=== PATIENT | male | born 1960 | race African-American/Black ===

== ENCOUNTER 2017-08-30 15:36 | Emergency (ER) | payer SELFPAY ==
[~2017-08-30] VITALS: Ht 177.8 cm; Wt 80.0 kg
[2017-08-30 15:40] VITALS: BP 176/101; PULSE 90; RESP 16; TEMP 98.8; O2SAT 99
--- NOTE | 2017-08-30 20:39 | PD ---
HPI Chief Complaint: Pain: Acute or Chronic Time Seen by Provider: 20:31 Travel History International Travel<30 days: No Contact w/Intl Traveler<30days: No Traveled to known affect area: No History of Present Illness HPI 56-year-old male complains of low back pain, left hip pain and left knee pain. Patient states that he fell 2 weeks ago. Patient states that he twisted his low back area, left hip and left knee. Patient denies any other injury. Patient states the pain is sharp pain localized to low back area, left hip and left knee. Patient complained of swelling of left knee. Patient denies any fever chills. Patient denies any previous injury. Patient denies being on any routine medication. On a scale of 1-10 the pain is an 8. PFSH Past Medical History ADHD: Yes Bipolar Disorder: Yes Cerebrovascular Accident: Yes (SEVERAL YEARS AGO) Diminished Hearing: No Hypertension: Yes Tetanus Vaccination: Unknown Social History Alcohol Use: Yes (4 pk per day) Tobacco Use: Yes (one pk per day) Substance Use: No Allergies-Medications (Allergen,Severity, Reaction): Coded Allergies: No Known Allergies (Verified Adverse Reaction, Unknown, 08/30/17) Reported Meds & Prescriptions Reported Meds & Active Scripts Active No Active Prescriptions or Reported Medications Review of Systems General / Constitutional: No: Fever Eyes: No: Visual changes HENT: No: Headaches Cardiovascular: No: Chest Pain or Discomfort Respiratory: No: Shortness of Breath Gastrointestinal: No: Abdominal Pain Genitourinary: No: Dysuria Musculoskeletal: Positive: Pain Skin: No Rash Neurologic: No: Weakness Psychiatric: No: Depression Endocrine: No: Polydipsia Hematologic/Lymphatic: No: Easy Bruising Physical Exam Narrative GENERAL: Well-nourished, well-developed patient. SKIN: Focused skin assessment warm/dry. HEAD: Normocephalic. EYES: No scleral icterus. No injection or drainage. NECK: Supple, trachea midline. No JVD or lymphadenopathy. CARDIOVASCULAR: Regular rate and rhythm without murmurs, gallops, or rubs. RESPIRATORY: Breath sounds equal bilaterally. No accessory muscle use. GASTROINTESTINAL: Abdomen soft, non-tender, nondistended. MUSCULOSKELETAL: Patient has mild tenderness to palpation posterior lateral aspect the left hip joint. Full range of motion left hip joint. Patient has moderate effusion of the left knee. Moderate tenderness diffuse over the left knee. Full range of motion the knee. Knee joint stable. BACK: Patient has moderate tenderness on palpation to the mid to low lumbar area , without obvious deformity. No CVA tenderness. Negative straight leg raising. Neurologic exam normal. Data Data Last Documented VS Vital Signs Date Time Temp Pulse Resp B/P (MAP) Pulse Ox O2 Delivery O2 Flow Rate FiO2 08/30/17 15:40 98.8 90 16 176/101 (126) 99 Orders Orders Spine, Lumbar - Ltd (Ap & Lat) (08/30/17 20:34) Hip, Uni(Ap&Lat) W Ap Pelvis (08/30/17 20:34) Knee, Complete (4vws) (08/30/17 20:34) MDM Medical Decision Making Medical Screen Exam Complete: Yes Emergency Medical Condition: Yes Differential Diagnosis Differential diagnosis including strain, fracture, dislocation. Narrative Course 56-year-old male with low back injury, left hip injury left knee injury. Injury happened 2 weeks ago. Scripts No Active Prescriptions or Reported Meds Brian Zpeeda MD Aug 30, 2017 20:39
--- NOTE | 2017-08-30 21:09 | PD ---
Physical Exam Date Seen by Provider: Aug 30, 2017 Time Seen by Provider: 21:08 Narrative The patient is a 56-year-old male was initially evaluated by the previous physician, Dr. Zepeda. Please refer to the initial history, physical, diagnostic evaluation, and treatment modality plan. The patient was signed out at 9 PM with x-rays pending. Data Data Last Documented VS Vital Signs Date Time Temp Pulse Resp B/P (MAP) Pulse Ox O2 Delivery O2 Flow Rate FiO2 08/30/17 15:40 98.8 90 16 176/101 (126) 99 Orders Orders Spine, Lumbar - Ltd (Ap & Lat) (08/30/17 20:34) Hip, Uni(Ap&Lat) W Ap Pelvis (08/30/17 20:34) Knee, Complete (4vws) (08/30/17 20:34) MDM Medical Record Reviewed: Yes Supervised Visit with THANH: No Interpretation(s) Last Impressions Lumbar Spine X-Ray 08/30/172033 Signed Impressions: Service Date/Time: Wednesday, August 30, 2017 21:04 - CONCLUSION: Mild disc space narrowing and osteophytes as described above. Phillip Marcelino MD Knee X-Ray 08/30/172033 Signed Impressions: Service Date/Time: Wednesday, August 30, 2017 21:01 - CONCLUSION: Moderate joint effusion. Phillip Marcelino MD Hip and Pelvis X-Ray 08/30/172033 Signed Impressions: Service Date/Time: Wednesday, August 30, 2017 20:59 - CONCLUSION: No acute disease. Phillip Marcelino MD Differential Diagnosis Differential diagnosis includes fracture, sprain, strain, hematoma, contusion, effusion. Narrative Course The patient was initially evaluated by the previous physician, Dr. Zepeda. Please refer to the initial history, physical, diagnostic evaluation, treatment modality plan. The patient was signed out at 9 PM with x-rays pending. Diagnosis Primary Impression: Back pain Qualified Codes: M54.5 - Low back pain Additional Impression: Effusion, left knee Patient Instructions: General Instructions Additional Instruction: Medications as directed. Please provide the patient a copy of his x-ray results at discharge. Follow-up with your primary physician. Richard wrap as needed to left knee. Elevate and ice. Med/Other Pt SpecificInfo: Prescription(s) given Scripts Cyclobenzaprine (Flexeril) 10 Mg Tab 10 MG PO TID for Muscle Spasm for 5 Days, #15 TAB 0 Refills Prov: Tanner Cristina MD 08/30/17 Ibuprofen (Ibuprofen) 600 Mg Tab 600 MG PO Q6H Y for Pain/Inflammation, #20 TAB 0 Refills Prov: Tanner Cristina MD 08/30/17 Disposition: 01 DISCHARGE HOME Condition: Stable Tanner Cristina MD Aug 30, 2017 21:09
--- NOTE | 2017-08-30 21:46 | RADRPT ---
EXAM DATE/TIME: 08/30/2017 20:59 [facility] COMPARISON: No previous studies available for comparison. INDICATIONS : Pain with no known injury. MEDICAL HISTORY : None. SURGICAL HISTORY : None. ENCOUNTER: Initial ACUITY: 2 weeks PAIN SCORE: 7/10 LOCATION: Left Hip and pelvis. FINDINGS: Examination of the left hip was performed with AP Pelvis. The primary and secondary trabecular patte rn of the femoral neck is intact. The hip joint is of normal width without significant sclerosis or bony hypertrophy. The acetabulum is grossly intact. CONCLUSION: No acute disease. Phillip Marcelino MD on August 30, 2017 at 21:44 Board Certified Radiologist. This report was verified electronically.
--- NOTE | 2017-08-30 21:47 | RADRPT ---
EXAM DATE/TIME: 08/30/2017 21:01 [facility] COMPARISON: No previous studies available for comparison. INDICATIONS : Pain with no known injury. MEDICAL HISTORY : None. SURGICAL HISTORY : None. ENCOUNTER: Initial ACUITY: 2 weeks PAIN SCORE: 6/10 LOCATION: Left Knee. FINDINGS: Four view examination of the left knee demonstrates no evidence of fracture or dislocation. There is minimal hypertrophic change at the medial joint space. There is a moderate joint effusion. 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 The articular surfaces are intact. The suprapatellar soft tissues have a vida l configuration. CONCLUSION: Moderate joint effusion. Phillip Marcelino MD on August 30, 2017 at 21:44 Board Certified Radiologist. This report was verified electronically.
--- NOTE | 2017-08-30 21:57 | RADRPT ---
EXAM DATE/TIME: 08/30/2017 21:04 [facility] COMPARISON: No previous studies available for comparison. INDICATIONS : Pain with no known injury. MEDICAL HISTORY : None. SURGICAL HISTORY : None. ENCOUNTER: Initial ACUITY: 2 weeks PAIN SCORE: 6/10 LOCATION: Back. FINDINGS: The lumbar vertebral bodies are normal in height. They are normally aligned in the sagittal plane. Th ere is a minimal dextrocurvature of the lumbar spine. There is disc space narrowing at the L2-L3, L4- L5 and L5-S1 levels. Spurs are seen throughout. The sacroiliac joints are intact. CONCLUSION: Mild disc space narrowing and osteophytes as described above. Phillip Marcelino MD on August 30, 2017 at 21:54 Board Certified Radiologist. This report was verified electronically.
[2017-08-30] MEDS ORDERED: IBUP-232 PO (22:18)
[2017-08-30] MEDS ORDERED: CYCL10TA PO (22:18)
== END 2017-08-30 22:44 | disposition home or self-care (01) ==
LOC: NEPD 15:36
DX: M54.5 Low back pain (principal); M25.462 Effusion, left knee; M25.562 Pain in left knee; M25.552 Pain in left hip; W19.XXXA Unspecified fall, initial encounter; F90.9 Attention-deficit hyperactivity disorder, unspecified type; F31.9 Bipolar disorder, unspecified; I10 Essential (primary) hypertension; F17.200 Nicotine dependence, unspecified, uncomplicated
CPT/HCPCS: 72100; 73502; 73564; 99284